=== PATIENT | female | born 1940 | race Caucasian/White ===

== ENCOUNTER → 2021-05-10 | Outpatient (CLI) | payer MEDICARE ==
--- NOTE | 2021-05-10 17:00 | RAD ---
EXAM: AP pelvis and lateral views of both hips DATE: 05/10/2021 12:08 PM INDICATION: Reason: PROXIMAL LEG WEAKNESS. / Spl. Instructions: / History: . COMPARISON: No Prior FINDINGS/ IMPRESSION: 1. No evidence of acute fracture or dislocation. 2. 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 Subtle lucency within the lesser trochanter measures 12 mm, without aggressive imaging characteri stics, possibly fibrous dysplasia. Consider follow-up radiographs in 3-6 months to ensure stability. Electronically signed by: Antoine Burgess MD (05/10/2021 4:58 PM) [id number]
== END ==
LOC: RAD 11:42
PROVIDERS: ATTEND Family Medicine
DX: M16.0 Bilateral primary osteoarthritis of hip (principal); R29.898 Other symptoms and signs involving the musculoskeletal system
CPT/HCPCS: 73521